=== PATIENT | male | born 1940 | race Caucasian/White ===

== ENCOUNTER → 2017-02-14 | Outpatient (CLI) | payer MEDICARE ==
[~2017-02-14] MED LIST: ADVAIR DIS14 PUFF/DI INH; ALLEGRA ALLERGY60 MG PO; ASPIRIN325 MG PO; BYSTOLIC2.5 MG PO; CELEBREX200 MG PO; CLARITIN10 MG PO; CYMBALTA60 MG PO; EXELON1.5 MG TRDERM; FLOMAX0.4 MG PO; FLONASE16 GM NASBOTH; FLOVENT DISKUS50 MCG INH; GLUCOPHAGE500 MG PO; LIVALO4 MG PO; LOTRIMIN AF28.35 GM TOP; LYRICA100 MG PO; MAGNESIUM OXID400 MG PO; MOBIC7.5 MG PO; MYRBETRIQ50 MG PO; OMEPRAZOLE20 M1 PO; OXYCODONE HCL10 MG PO; OXYCODONE HCL5 MG PO; PROBIOTIC1 EAC1 PO; PROSCAR5 MG PO; REQUIP1 MG PO; SINEMET CR 50-21 TAB PO; SPIRIVA18 MCG INH; STOOL SOFTENER100 M1 PO; STOOL SOFTENER100 MG PO; SYNTHROID25 MCG PO; SYNTHROID50 MCG PO; TRESIBA FL100 UNIT/1 SUBCUT; TYLENOL500 MG PO; ULTRAM50 MG PO; VENTOLIN HFA18 GM INH; VENTOLIN HFA8 GM INH; VITAMIN B COMP1 EACH PO
== END | disposition short-term general hospital (02) ==
LOC: CLCARD 08:39
DX: I25.10 Atherosclerotic heart disease of native coronary artery without angina pectoris (principal); E78.5 Hyperlipidemia, unspecified; J44.9 Chronic obstructive pulmonary disease, unspecified; G47.30 Sleep apnea, unspecified; I10 Essential (primary) hypertension; R42 Dizziness and giddiness; E11.9 Type 2 diabetes mellitus without complications; E66.9 Obesity, unspecified